=== PATIENT | female | born 1955 | race Two or more races ===

== ENCOUNTER 2016-11-06 20:22 | Emergency (ER) | payer MEDICARE, MEDICAID ==
[~2016-11-06 20:22] MED LIST: ANASTROZOLE1 M1 PO; CALCIUM500 M3 PO; CELEXA20 MG PO; EFFER-K 10 MEQ10 MEQ PO; ELAVIL25 MG PO; ESTROGEN PO; FLEXERIL10 MG PO; GLUCOPHAGE XR500 MG PO; GLUCOPHAGE1000 M1 PO; GLUCOPHAGE500 M3 PO; GLUCOPHAGE500 MG PO; HYDROCHLOROTH12.5 MG; IBUPROFEN400 MG PO; IBUPROFEN800 MG PO; IPRAT-ALBUT 0.5-3 ML IH; K-DUR20 ME1 PO; LEVAQUIN750 M1 PO; LEXAPRO10 M1 PO; LEXAPRO10 M2 PO; LISINOPRIL10 MG; LISINOPRIL20 MG PO; LISINOPRIL40 M1 PO; LORTAB 5/500 TA1 TAB; LYRICA25 MG/CAP NG; METOPROLOL; METOPROLOL SUCC50 MG PO; MOTRIN800 MG PO; NAPROSYN500 MG PO; NORCO 10/325 TA1 TAB PO; NORCO 10/3251 TAB PO; NORCO 5-325 TA1 EACH PO; NORCO 5/325 TAB1 TAB PO; PERCOCET 5/3251 TAB PO; PERCOCET 7.5-31 EAC1 PO; PERCOCET 7.5/321 TA2 PO; POTASSIUM CHLO20 ME3 PO; PREDNISONE10 M1 PO; PREDNISONE20 M1 PO; RISPERDAL1 MG PO; SKELAXIN800 MG PO; TOPROL XL50 M1 PO; TYLENOL500 MG; [UNRECOGNIZED DRUG - REMARK]; [UNRECOGNIZED DRUG - REMARK]
[2016-11-06] MEDS ORDERED: GLUCOPHAGE500 M3 PO (20:37)
[2016-11-06] MEDS ORDERED: NORCO 10-325 T1 EACH PO (20:38)
[2016-11-06] MEDS ORDERED: NORCO 5-325 TA1 EACH PO (22:03)
[2017-02-08] MEDS ORDERED: PERCOCET 5-3251 EACH PO (19:15)
[2017-02-08] MEDS ORDERED: NORCO 5-325 TA1 EACH PO (20:32)
== END 2016-11-06 22:08 ==
LOC: EDMED 20:22
DX: S46.811A Strain of other muscles, fascia and tendons at shoulder and upper arm level, right arm, initial encounter (principal); I10 Essential (primary) hypertension; E11.9 Type 2 diabetes mellitus without complications; E78.5 Hyperlipidemia, unspecified; F17.210 Nicotine dependence, cigarettes, uncomplicated; X50.9XXA Other and unspecified overexertion or strenuous movements or postures, initial encounter
CPT/HCPCS: J1885